=== PATIENT | male | born 1955 | race Caucasian/White ===

== ENCOUNTER 2017-04-24 14:09 | Observation (INO) | payer MEDICARE, OTHER ==
[~2017-04-24] VITALS: Ht 165.1 cm; Wt 74.5 kg
--- NOTE | ~2017-04-24 | CR72 ---
[facility] A Service of [facility] RADIOLOGY TEXT RESULTS PATIENT: ALL LIVINGSTON LOCATION: CEDOF : 59 UNIT #: [id number] AGE: [address]: Milla Almaraz MD SEX: M ORDER DR: [id number] [facility] [address] [facility]. [place], [place] [address] [id number] I MR#: [id number] Acc #: [id number] NAME: ALL LIVINGSTON : 1955 SEX: M STUDY DATE/TIME: 04/24/2017 14:51 UNIT: CEDOF ROOM: 17321 STUDY DESCRIPTION: CR Chest Single View Portable Attending Physician: Milla Almaraz M.D. Ordering Physician: Teresa Davis M.D. Primary Care Physician: No Primary Care Physician MEDICAL IMAGING REPORT This report is preliminary unless electronic signature is present EXAM Portable chest x-ray, 04/24/2017. HISTORY Chest pain. Today. Prior history of CHF. Nonsmoker. REPORT AP radiograph chest presented. COMPARISON 09/24/2005 FINDINGS Lung volumes very low. Central bronchovascular crowding. There is no compelling evidence of acute infectious or inflammatory disease. No pleural effusion or pneumothorax. No suspicious nodule. Given lung volumes, cardiomediastinal contours within normal limits. Degenerative changes in the spine. No acute-appearing bony abnormality. Lungs could best be evaluated with formal PA and lateral radiographs of the chest obtained at full inspiration. Dictated by... Derek Hernandez M.D. THIS IS AN ELECTRONICALLY VERIFIED REPORT Derek Hernandez M.D. at 04/24/2017 6:31 PM KARLOS/chana TD: 04/24/2017 17:33 JOB #: [id number] MEDICAL IMAGING REPORT [facility] A Service [facility] RADIOLOGY TEXT RESULTS PATIENT: ALL LIVINGSTON LOCATION: CEDOF : 59 UNIT #: [id number] AGE: [address]: Milla Almaraz MD SEX: M ORDER DR: Page 1 of 1 COPY
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
--- NOTE | ~2017-04-24 | ST ---
Unit #: [id number] #: [id number] Patient: ALL LIVINGSTON [id number] [address] [address] [id number] I MR#: [id number] NAME: ALL LIVINGSTON : 1955 SEX: M STUDY DATE/TIME: 04/25/2017 UNIT: C5B ROOM: [facility] STUDY DESCRIPTION: Stress ECG Attending Physician: Milla Almaraz M.D. Primary Care Physician: Primary Care Physician No CARDIOLOGY REPORT EXAM Stress ECG. INDICATIONS Dyspnea, chest discomfort, and inability to exercise. SUMMARY Patient was given Lexiscan intravenously while at rest as well as technetium 99 Cardiolite, 10.37 and 29.8 mCi at rest and stress, respectively. Appropriate views were obtained. FINDINGS The study is adequate. There is no significant patient motion noted during acquisition of the rest or stress images. There is no significant lung uptake, LV, or RV enlargement. Summed stress score is 5. Summed difference score is 5. Changes involve primarily border detection at the base. Perfusion images demonstrate diaphragmatic artifact and intestinal artifact both at rest and stress, slightly worse with stress. Otherwise, perfusion is normal and equivalent between rest and stress with typical apical thinning present. Gated perfusion wall motion analysis demonstrates normal wall motion throughout the myocardium with end-diastolic volume 61 mL, ejection fraction greater than 65%. IMPRESSION Myocardial perfusion images demonstrate no ischemia or infarction. Normal wall motion with excellent ejection fraction. Dictated by... Jozef Adams/xuan TD: 04/26/2017 10:02 JOB #: [id number] Unit #: [id number] #: [id number] Patient: ALL LIVINGSTON CARDIOLOGY REPORT Page 1 of 1 X Ezequiel Ho MD CARDIOLOGY REPORT
--- NOTE | ~2017-04-24 | EKG ---
PATIENT: ALL LIVINGSTON UNIT #: [id number] Ventricular Rate: 92 BPM Atrial Rate: 92 BPM P-R Interval: 122 ms QRS Duration: 82 ms Q-T Interval: 350 ms QTC Calculation(Bezet): 432 ms P [place]: 60 degrees Calculated R [place]: 0 degrees Calculated T [place]: 38 degrees Diagnosis Line: Normal sinus rhythm Diagnosis Line: Normal ECG Diagnosis Line: When compared with ECG of 18-MAY-2014 13:54, Diagnosis Line: Questionable change in QRS axis Diagnosis Line: Confirmed by REMI SANTOS MD ([id number]) on Diagnosis Line: 04/25/2017 7:31:18 AM INTERPRETING MD: TOM ANTONIO
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
--- NOTE | ~2017-04-24 | ST ---
Unit #: [id number] #: [id number] Patient: ALL LIVINGSTON [id number] [address] [address] [id number] I MR#: [id number] NAME: ALL LIVINGSTON : 1955 SEX: M STUDY DATE/TIME: 04/25/2017 UNIT: C5B ROOM: [facility] STUDY DESCRIPTION: Stress Test Attending Physician: Milla Almaraz M.D. Primary Care Physician: No Primary Care Physician CARDIOLOGY REPORT EXAM Stress Test REASON FOR EXAM Chest pain. DESCRIPTION Baseline EKG shows normal sinus rhythm, rate of 88 beats/minute. 0.4 mg of Lexiscan was injected per protocol followed by Cardiolite. During the testing period, the patient did experience shortness of breath and felt dizzy, but denied any complaints of chest pain. There were no ST-T wave changes suggestive of ischemia noted. There was no ectopy. The test was stopped secondary to protocol completion. IMPRESSION 1. Negative EKG portion of Lexiscan Cardiolite. 2. No ST-T wave changes suggestive of ischemia. 3. Complaint of shortness of breath and dizziness during the infusion. These resolved in the recovery period. 4. No arrhythmias. 5. Please correlate with nuclear imaging. Dictated by... Khris GainesPShyanneRGarry for Milla Almaraz M.D. LMW/df TD: 04/25/2017 13:05 JOB #: [id number] Unit #: [id number] #: [id number] Patient: ALL LIVINGSTON CARDIOLOGY REPORT Page 1 of 1 X Neli Tsai APRN CARDIOLOGY REPORT
[2017-04-24 15:12] LABS: BASOPHIL% 0.8 % (0-2.5); EOSINOPHIL# 0.3 X10e3 (0-0.7); EOSINOPHIL% 5.7 % (0.0-7.0); HEMATOCRIT 39.3 % (38.0-50.0); HEMOGLOBIN 13.2 gm/dL (13.0-16.0); LYMPHOCYTE# 1.1 X10e3 (1.0-3.5); LYMPHOCYTE% 23.5 % (17.0-45.0); MEAN CELL VOLUME 85.2 FL (83-96); MEAN CORPUSCULAR HEMOGLOBIN 28.7 PG (28-34); MEAN CORPUSCULAR HGB CONC 33.7 g/dL (30-36); MEAN PLATELET VOLUME 5.9 FL (6.5-11.5); MONOCYTE# 0.3 X10e3 (0-1.0); MONOCYTE% 7.1 % (3.0-12.0); NEUTROPHIL# 2.9 X10e3 (1.5-7.1); NEUTROPHIL% 62.9 % (40-75); PLATELET COUNT 243 X10e3 (140-420); RED BLOOD COUNT 4.62 X10e (3.90-5.60); RED CELL DISTRIBUTION WIDTH 14.2 % (11.0-15.5); WHITE BLOOD COUNT 4.6 X10e3 (4.0-10.5)
[2017-04-24 15:14] LABS: DIFF IND NO
[2017-04-24 15:25] LABS: PARTIAL THROMBOPLASTIN TIME 28.6 SECONDS (23.5-31.3)
[2017-04-24 15:38] LABS: ALBUMIN SERUM 3.9 g/dL (3.5-5.0); BILIRUBIN, DIRECT 0.1 mg/dL (0.0-0.2); BILIRUBIN,INDIRECT 0.5 mg/dL (0.0-0.9); BILIRUBIN,TOTAL 0.6 mg/dL (0.2-2.0); BUN/CREATININE RATIO 17.5; CALCIUM SERUM 9.3 mg/dL (8.4-10.2); CREATININE SERUM 1.2 mg/dL (0.6-1.4); GLOM FILT RATE Estimated 65.8 mL/min (>60); POTASSIUM 3.9 mmol/L (3.5-5.1); PROTEIN TOTAL SERUM 6.7 g/dL (6.0-8.3)
[2017-04-24 16:06] LABS: POC - CKMB 1.1 ng/mL (0.0-7.9); POC - TROPONIN <0.05 ng/mL (<=0.05)
[2017-04-24] MEDS ORDERED: A/F PAIN RELIE500 M1 PO (16:43)
[2017-04-24] MEDS ORDERED: BEANO150 UNIT PO (16:44)
[2017-04-24] MEDS ORDERED: ASPIRIN81 M2 PO (16:45)
[2017-04-24] MEDS ORDERED: CALCIUM 600 +1 EAC1 PO (16:45)
[2017-04-24] MEDS ORDERED: COL-RITE50 MG PO (16:46)
[2017-04-24] MEDS ORDERED: ARICEPT5 M1 PO (16:46)
[2017-04-24] MEDS ORDERED: BENTYL10 MG PO (16:46)
[2017-04-24] MEDS ORDERED: LEXAPRO20 MG PO (16:46)
[2017-04-24] MEDS ORDERED: TRIDESILON 0.0515 G2 TOP (16:46)
[2017-04-24] MEDS ORDERED: NIZORAL 2% CREA15 GM TOP (16:47)
[2017-04-24] MEDS ORDERED: COZAAR PO (16:47)
[2017-04-24] MEDS ORDERED: NAMENDA5 MG PO (16:47)
[2017-04-24] MEDS ORDERED: CLARITIN10 M3 PO (16:47)
[2017-04-24] MEDS ORDERED: ANTIVERT PO (16:47)
[2017-04-24] MEDS ORDERED: PRILOSEC PO (16:48)
[2017-04-24] MEDS ORDERED: MIRALAX17 GM PO (16:48)
[2017-04-24] MEDS ORDERED: MULTIVITAMINS1 EAC3 PO (16:48)
[2017-04-24] MEDS ORDERED: EXELON4.6 MG TOP (16:49)
[2017-04-24] MEDS ORDERED: FLOMAX0.4 M1 PO (16:49)
[2017-04-24] MEDS ORDERED: SEROQUEL XR150 MG PO (16:49)
[2017-04-24] MEDS ORDERED: VESICARE PO (16:49)
[2017-04-24] MEDS ORDERED: KENALOG100 GM TOP (16:49)
[2017-04-25 07:50] LABS: CHOLESTEROL 129 mg/dL (0-200); HDL CHOLESTEROL 32 mg/dL (29-75); LDL CHOLESTEROL 74 mg/dL ([, -130]); LDL/HDL RATIO 2 RATIO (0-4); TRIGLYCERIDES 114 mg/dL (10-160)
[2017-04-26] MEDS ORDERED: PAIN RELIEF325 M1 PO (05:13)
== END 2017-04-26 13:29 | disposition home or self-care (01) ==
LOC: CED 14:09 → CEDOF 16:28 → C5B 16:56 → CED 16:56 → C5B 17:55 → CEDOF 17:55 → C5B 04-26 13:29
PROVIDERS: Emergency Medicine; Internal Medicine Cardiovascular Disease
DX: R07.9 Chest pain, unspecified (principal); F03.90 Unspecified dementia, unspecified severity, without behavioral disturbance, psychotic disturbance, mood disturbance, and anxiety; I51.7 Cardiomegaly; F71 Moderate intellectual disabilities; I10 Essential (primary) hypertension; K21.9 Gastro-esophageal reflux disease without esophagitis; M85.80 Other specified disorders of bone density and structure, unspecified site; F32.9 Major depressive disorder, single episode, unspecified; R32 Unspecified urinary incontinence; Z79.899 Other long term (current) drug therapy
CPT/HCPCS: 36415; 71010; 78452; 80048; 80061; 80076; 82553; 83036; 83880; 84443; 84484; 85025; 85610; 85730; 93005; 93017; 93306; 96372; 99285; A9500; G0378; J1650; J2785